=== PATIENT | male | born 1980 ===

== ENCOUNTER → 2017-02-28 | Outpatient (REF) | payer BC ==
[2017-02-28 17:54] LABS: C REACTIVE PROTEIN QUANTITATIV < 0.30 MG/DL (0.00-0.30)
== END ==
LOC: M LAB REF 16:00
DX: R19.7 Diarrhea, unspecified (principal)
CPT/HCPCS: 86140

== ENCOUNTER → 2017-02-28 | Outpatient (REF) | payer BC | LOC: M LAB REF 17:52 | DX: R19.7 Diarrhea, unspecified (principal) ==